=== PATIENT | female | born 1955 | race Caucasian/White ===

== ENCOUNTER 2016-11-29 13:14 | Emergency (ER) | payer OTHER ==
[~2016-11-29] VITALS: Ht 165.1 cm; Wt 74.0 kg
[~2016-11-29 13:14] MED LIST: TRAM50TA2 PO; VALA100057 PO
[2016-11-29 13:22] VITALS: Ht 165.1 cm; Wt 74.0 kg
[2016-11-29] MEDS ORDERED: SULF1TAB31 PO (13:43)
[2016-11-29] MEDS ORDERED: TRIA15CR55 TOP (13:43)
[2016-11-29] MEDS ORDERED: PRED20TA PO (13:43)
--- NOTE | 2016-11-29 13:47 | ERD ---
ER Documentation Chief Complaint Date/Time DATE: 11/29/16 TIME: 13:44 Chief Complaint MULTIPLE POSSIBLE BUG BITES ON ALL EXTREMITIES HPI Patient is a 61-year-old female with no past medical history who presents to the ED with 2 possible bug bites on her legs 1 week. She states that they are itchy and slightly painful. She states that she possibly got bit by a bug. Denies fever or chills. Denies nausea, vomiting or diarrhea. Denies chest pain or cough or shortness of breath. Denies recent travel or recent surgeries. States that she tried triamcinolone cream which helped minimally with symptoms. No other complaints. ROS All systems reviewed and are negative except as per history of present illness. Medications Home Meds Active Scripts Sulfamethoxazole/Trimethoprim* (Bactrim Ds* Tablet) 1 Each Tablet, 1 TAB PO BID , #14 TAB Prov:EAN HOLLOWAY PA-C 11/29/16 Prednisone* (Prednisone*) 20 Mg Tab, 40 MG PO DAILY for 4 Days, TAB Prov:EAN HOLLOWAY PA-C 11/29/16 Triamcinolone Acetonide (Triamcinolone Acetonide) 0.1% - 15 Gm Cream.gm., 1 APPLIC TOP BID, #1 TUB Prov:EAN HOLLOWAY PA-C 11/29/16 Tramadol HCl (Tramadol HCl) 50 Mg Tablet, 50 MG PO Q4 Y for PAIN, #20 TAB Prov:HONEY DOBBS PA-C 12/25/15 Valacyclovir Hcl* (Valtrex*) 1,000 Mg Tablet, 1000 MG PO TID for 7 Days, TAB Prov:HONEY DOBBS PA-C 12/25/15 PMhx/Soc History of Surgery: No Anesthesia Reaction: No Hx Neurological Disorder: No Hx Respiratory Disorders: No Hx Cardiac Disorders: No Hx Psychiatric Problems: No Hx Miscellaneous Medical Probl: No Hx Alcohol Use: No Hx Substance Use: No Hx Tobacco Use: No FmHx Family History: No coronary disease, No diabetes, No other Physical Exam Vitals Vital Signs Date Time Temp Pulse Resp B/P Pulse Ox O2 Delivery O2 Flow Rate FiO2 11/29/16 13:22 98.8 95 18 132/83 97 Physical Exam GENERAL: Well-developed, well-nourished female. Appears in no acute distress. HEAD: Normocephalic, atraumatic. EYES: Pupils are equally reactive bilaterally. EOMs grossly intact. No conjunctival erythema. ENT: Moist mucous membranes. No uvula deviation. No kissing tonsils. No exudates. NECK: Supple. No lymphadenopathy or thyromegaly. No meningismus. negative kernig. negative brudinski. LUNG: Clear to auscultation bilaterally. No rhonchi, wheezing, rales or coarse breath sounds. HEART: Regular rate and rhythm. No murmurs, rubs or gallops. Extremities: Equal pulses bilaterally. No peripheral clubbing, cyanosis or edema. No unilateral leg swelling. NEUROLOGIC: Alert and oriented. Moving all four extremities. 5/5 strength in all extremities. Normal speech. Steady gait. SKIN: Normal color. Warm and dry. Two, 6 cm circumferential macular lesion on left calf and right haque with surrounding dark erythema and inside wireman center. Capillary refill < 2 seconds Procedures/MDM ER COURSE: I kept the patient and/or family informed of laboratory and diagnostic imaging results throughout the emergency room course. MEDICAL DECISION MAKING: This is a 61-year-old female who presents with rash 1 week. Vital signs were reviewed. Patient is afebrile. Patient is not hypoxic. Patient is not toxic or ill-appearing. I consulted with my supervising physician Dr. Balderas came to examine patient at bedside and agrees with my medical decision making and discharge plans. Patient's rash is likely bug bite versus autoimmune versu versus local cellulitis. Low suspicion for Lyme disease. Low suspicion for necrotizing fasciitis, SJS, toxic epidermal necrolysis, Kawasaki, erythema multiforme, gangrene, scarlet fever, meningococcemia, sepsis, anaphylaxis, sepsis, deep space infection, or foreign body. DISCHARGE: At this time, patient is stable for discharge and outpatient management with no new complaints during the ER course. Patient was sent home with Bactrim, prednisone and triamcinolone cream. Patient will be discharged home with instructions to recheck for new or worsening symptoms such as fever, nausea, weakness, LOC and to follow up with primary care in the next 1-2 days. Patient was advised to return to the ER for any new or worsening symptoms. Plan was discussed and patient and/or family understands and agrees. Home instructions were given. Departure Diagnosis: Primary Impression: Bite wound Condition: Stable Patient Instructions: Animal Bite, General Referrals: [facility] Usted se castillo hecho un examen mdico de control que le indica que no est en serena condicin que requiera tratamiento urgente en el Departamento de Emergencia. Un estudio ms profundo y el tratamiento de durham condicin pueden esperar sin ningn riesgo hasta que usted sea atendida/o en el consultorio de durham mdico o serena cl gilberto. Es responsabilidad suya arreglar serena shalom para el seguimiento del sunita. MANEJO DE CONDICIONES NO URGENTES EN EL FUTURO 1) Si usted tiene un mdico de atencin primaria: Usted debera llamar a durham mdico de atencin primaria antes de venir al departamento de emergencia. Despus de las horas de consultorio, durham doctor o durham asociado/a est disponible por telfono. El mdico o enfermero de raisa en el servicio telefnico puede asesorarle por art medio para atender el problema, o sunita contrario se puede programar serena shalom. 2) Si usted no tiene un mdico de atencin primaria: Llame al mdico o clnica de referencia que aparece abajo yudelka las horas de consultorio para hacer serena shalom para que le vean. CLINICAS: [facility] [phone] [facility] [phone] [facility] [phone] [address] [facility]. [facility] [phone] [place] [id number] [phone] [facility]. [phone] [address] Additional Instructions: Llame al doctor SHERRY y jamilah serena SHALOM PARA DENTRO DE 1-2 GOODWIN.Dgale a la secretaria que nosotros le instruimos hacer esta shalom.Avise o llame si durham condicin se empeora antes de la shalom. Regresa aqui si peor o no mejor. EAN HOLLOWAY PA-C Nov 29, 2016 13:47
== END 2016-11-29 14:00 | disposition home or self-care (01) ==
LOC: FTE 13:14
DX: S80.861A Insect bite (nonvenomous), right lower leg, initial encounter (principal); S80.862A Insect bite (nonvenomous), left lower leg, initial encounter; W57.XXXA Bitten or stung by nonvenomous insect and other nonvenomous arthropods, initial encounter; Y92.9 Unspecified place or not applicable
CPT/HCPCS: 99284

== ENCOUNTER 2018-07-30 09:57 | Emergency (ER) | payer OTHER ==
[~2018-07-30] VITALS: Ht 165.1 cm; Wt 80.0 kg
[~2018-07-30 09:57] MED LIST changes: +PRED20TA PO; +SULF1TAB31 PO; +TRIA15CR55 TOP
[2018-07-30 09:58] VITALS: Ht 165.1 cm; Wt 80.0 kg
[2018-07-30] MEDS ORDERED: KETOROLAC 30 MG INJ IM STA (11:11)
[2018-07-30] MEDS ORDERED: ACET-141 PO (12:59)
[2018-07-30] MEDS ORDERED: METH750T93 PO (12:59)
[2018-07-30] MEDS ORDERED: IBUP-1542 PO (12:59)
--- NOTE | 2018-07-30 13:02 | ERD ---
ER Documentation Chief Complaint Chief Complaint NECK PAIN X 3 DAYS HPI 63-year-old female presents for neck pain times 3 days. She states that the pain is in upper back, rated 6 out of 10, described as sharp. Took Naprosyn at home without relief. No prior similar symptoms. Denies fevers or chills. Denies nausea vomiting or diarrhea. Does have a significant history of back surgery back in her 2006 for disc disease. No recent back procedures or infections noted. ROS All systems reviewed and are negative except as per history of present illness. Medications Home Meds Active Scripts Methocarbamol* (Robaxin*) 750 Mg Tablet, 750 MG PO TID PRN for musc, #30 TAB Prov:DENISSE LUNDY DO 07/30/18 Acetaminophen* (Acetaminophen*) 500 MG Extra Strength Tablet, 500 MG PO Q4H PRN for PAIN AND OR ELEVATED TEMP, #30 TAB Prov:DENISSE LUNDY DO 07/30/18 Ibuprofen* (Motrin*) 600 Mg Tab, 600 MG PO Q6H PRN for PAIN AND OR ELEVATED TEMP, #30 TAB Prov:DENISSE LUNDY DO 07/30/18 Sulfamethoxazole/Trimethoprim* (Bactrim Ds* Tablet) 1 Each Tablet, 1 TAB PO BID, #14 TAB Prov:EAN HOLLOWAY PA-C 11/29/16 Prednisone* (Prednisone*) 20 Mg Tab, 40 MG PO DAILY for 4 Days, TAB Prov:EAN HOLLOWAY PA-C 11/29/16 Triamcinolone Acetonide (Triamcinolone Acetonide) 0.1% - 15 Gm Cream.gm., 1 APPLIC TOP BID, #1 TUB Prov:EAN HOLLOWAY PA-C 11/29/16 Tramadol HCl (Tramadol HCl) 50 Mg Tablet, 50 MG PO Q4 PRN for PAIN, #20 TAB Prov:HONEY DOBBS PA-C 12/25/15 Valacyclovir Hcl* (Valtrex*) 1,000 Mg Tablet, 1000 MG PO TID for 7 Days, TAB Prov:HONEY DOBBS PA-C 12/25/15 Allergies Allergies: Coded Allergies: No Known Allergy (Unverified , 07/30/18) PMhx/Soc Medical and Surgical Hx: pt denies Medical Hx, pt denies Surgical Hx History of Surgery: No Anesthesia Reaction: No Hx Neurological Disorder: No Hx Respiratory Disorders: No Hx Cardiac Disorders: No Hx Psychiatric Problems: No Hx Miscellaneous Medical Probl: No Hx Alcohol Use: No Hx Substance Use: No Hx Tobacco Use: No Smoking Status: Never smoker Physical Exam Vitals Vital Signs Date Temp Pulse Resp B/P (MAP) Pulse Ox O2 O2 Flow FiO2 Time Delivery Rate 07/30/18 98.1 84 18 164/84 98 09:58 (110) Physical Exam Const: No acute distress Neck: Full range of motion. No meningismus. no midline tenderness Resp: Clear to auscultation bilaterally Cardio: Regular rate and rhythm, no murmurs, bilateral radial and dorsalis pedis pulses intact and equal Abd: Soft, non tender, non distended. Normal bowel sounds, no abdominal bruit noted Skin: No petechiae or rashes Back: no point tenderness, upper thoracic tenderness to palpation in the paravertebral muscles, there is mild tenderness to palpation midline however no point tenderness or step-off noted Ext: No cyanosis, or edema, 5/5 muscle strength bilateral upper and lower extremities Neur: Awake and alert, bilateral upper and lower extremity sensation intact Psych: Normal Mood and Affect Result Diagram: 07/30/18 1116 07/30/18 1116 Results 24 hrs Laboratory Tests Test 07/30/18 11:16 White Blood Count 6.3 10^3/ul Red Blood Count 3.92 10^6/ul Hemoglobin 12.3 g/dl Hematocrit 37.8 % Mean Corpuscular Volume 96.4 fl Mean Corpuscular Hemoglobin 31.4 pg Mean Corpuscular Hemoglobin Concent 32.5 g/dl Red Cell Distribution Width 12.5 % Platelet Count 210 10^3/UL Mean Platelet Volume 9.6 fl Immature Granulocytes % 0.300 % Neutrophils % 62.3 % Lymphocytes % 24.7 % Monocytes % 10.8 % Eosinophils % 1.4 % Basophils % 0.5 % Nucleated Red Blood Cells % 0.0 /100WBC Immature Granulocytes # 0.020 10^3/ul Neutrophils # 3.9 10^3/ul Lymphocytes # 1.6 10^3/ul Monocytes # 0.7 10^3/ul Eosinophils # 0.1 10^3/ul Basophils # 0.0 10^3/ul Nucleated Red Blood Cells # 0.0 10^3/ul Sodium Level 144 mmol/L Potassium Level 4.8 mmol/L Chloride Level 107 mmol/L Carbon Dioxide Level 31 mmol/L Anion Gap 6 Blood Urea Nitrogen 13 mg/dl Creatinine 0.59 mg/dl Est Glomerular Filtrat Rate mL/min > 60 mL/min Glucose Level 111 mg/dl Calcium Level 9.4 mg/dl Total Bilirubin 0.7 mg/dl Direct Bilirubin 0.00 mg/dl Indirect Bilirubin 0.7 mg/dl Aspartate Amino Transf (AST/SGOT) 31 IU/L Alanine Aminotransferase (ALT/SGPT) 24 IU/L Alkaline Phosphatase 99 IU/L Total Protein 7.8 g/dl Albumin 4.3 g/dl Globulin 3.50 g/dl Albumin/Globulin Ratio 1.22 Current Medications Medications Dose Sig/Nigel Start Time Status Last (Trade) Ordered Route PRN Stop Time Admin Dose Reason Admin Ketorolac 30 mg ONCE STAT 07/30/18 DC 07/30/18 Tromethamine IM 11:11 11:22 (Toradol) 07/30/18 11:12 Procedures/MDM Medical Decision Making: Differential diagnosis includes but not limited to muscle strain, ligamentous sprain, epidural abscess, osteomyelitis, osteoarthritis, herniated disc, compression fracture, aortic aneurysm, kidney stone, pyelonephritis, pancreatitis. Patient appeared well on physical examination. Nontoxic appearing. Patient appeared well on physical examination. Nontoxic appearing. No recent back procedure, therefore low suspicion for epidural abscess No recent infection, therefore low suspicion for osteomyelitis No trauma, therefore low suspicion for fracture No chest pain, abdominal pain and no pulse deficits noted, therefore low suspicion for aortic dissection or pancreatitis No flank pain or fever to suggest pyelonephritis or kidney stone Lab: CBC: no e/o of systemic infection or severe anemia CMP: no e/o severe acidosis, alkalosis, renal failure, diabetic ketoacidosis, liver disease Imaging: Thoracic spine x-ray unremarkable Patient likely has muscle strain ED course: Patient was given Toradol. Symptoms improved with treatment. Prescription(s): Patient given prescription for Motrin, Tylenol, Robaxin. Patient advised to follow up with PCP in 1-2 days. Patient advised to return to ED for new or worsening symptoms. Patient stable on discharge from the ED. Disclaimer: Inadvertent spelling and grammatical errors are likely due to EHR/dictation software use and do not reflect on the overall quality of patient care. Also, please note that the electronic time recorded on this note does not necessarily reflect the actual time of the patient encounter. Departure Diagnosis: Primary Impression: Neck pain Condition: Fair Patient Instructions: Neck Pain, No Trauma Referrals: [facility] YOU HAVE RECEIVED A MEDICAL SCREENING EXAM AND THE RESULTS INDICATE THAT YOU DO NOT HAVE A CONDITION THAT REQUIRES URGENT TREATMENT IN THE EMERGENCY DEPARTMENT. FURTHER EVALUATION AND TREATMENT OF YOUR CONDITION CAN WAIT UNTIL YOU ARE SEEN IN YOUR DOCTORS OFFICE WITHIN THE NEXT 1-2 DAYS. IT IS YOUR RESPONSIBILITY TO MAKE AN APPOINTMENT FOR FOLOW-UP CARE. IF YOU HAVE A PRIMARY DOCTOR --you should call your primary doctor and schedule an appointment IF YOU DO NOT HAVE A PRIMARY DOCTOR YOU CAN CALL OUR PHYSICIAN REFERRAL HOTLINE AT IF YOU CAN NOT AFFORD TO SEE A PHYSICIAN YOU CAN CHOSE FROM THE FOLLOWING [facility] [address] [facility] [address] [facility] [address] [facility] [address] [facility] [address] [facility]. [facility]. [address] Additional Instructions: Llame al doctor MAANA y jamilah serena SHALOM PARA DENTRO DE 1-2 [place].Dgale a la secretaria que nosotros le instruimos hacer esta shalom.Avise o llame si durham condicin se empeora antes de la shalom. Regresa aqui si peor o no mejor. DENISSE LUNDY DO Jul 30, 2018 13:02
[2018-07-30 13:08] VITALS: BP 139/70; PULSE 80; RESP 18
== END 2018-07-30 13:09 | disposition home or self-care (01) ==
LOC: FTE 09:57
DX: M54.2 Cervicalgia (principal)
CPT/HCPCS: 72072; 80053; 85025; 96372; J1885; Z7502